=== PATIENT | female | born 1995 | race Caucasian/White ===

== ENCOUNTER 2017-05-05 02:14 | Emergency (ER) | payer SELFPAY ==
[~2017-05-05] VITALS: Ht 157.5 cm; Wt 103.2 kg
[~2017-05-05 02:14] MED LIST: ONDA8TAB12 PO; SULF1TAB23 PO
--- NOTE | 2017-05-05 02:19 | ED.ADGEN ---
Past History Past Medical History: Asthma Past Surgical History: Smoking: Non-smoker Alcohol Use: None Drug Use: None Adult General Chief Complaint Chief Complaint " I ve got lots of cavities.. but I am having a lot of pain tonight... " HPI HPI Patient is a 22 year old female who presents with above hx and complaints of dental pain. Pt. does have many cavities and findings of gingivitis. Most tender is tooth number 32 which has a open cavity. There is no pointing abscess. No trismus. Minimal adenopathy at ankle of the right mandible. Patient does smoke. Patient denies history of immunosuppression. Patient does have good bite. Patient referred to the dental school in [facility] as well as the dental surgery clinic on [facility] as sites to have repair and removal of her most severe problems if no insurance. Encourage pt to stop smoking. Review of Systems Review of Systems Constitutional: Denies fever or chills [] Eyes: Denies change in visual acuity, redness, or eye pain [] HENT: Denies nasal congestion or sore throat []Complaints of dental pain. Respiratory: Denies cough or shortness of breath [] Cardiovascular: No additional information not addressed in HPI [] GI: Denies abdominal pain, nausea, vomiting, bloody stools or diarrhea [] : Denies dysuria or hematuria [] Musculoskeletal: Denies back pain or joint pain [] Integument: Denies rash or skin lesions [] Neurologic: Denies headache, focal weakness or sensory changes [] Endocrine: Denies polyuria or polydipsia [] Family History Family History Non-contributory Current Medications Current Medications Current Medications Medications (Trade) Dose Ordered Sig/Mason Start Time Stop Time Status Last Admin Dose Admin Cephalexin HCl (Keflex) 500 mg 1X ONCE 05/05/17 02:30 05/05/17 02:31 UNV Oxycodone/ Acetaminophen (Percocet 10/325) 1 tab 1X ONCE 05/05/17 02:30 05/05/17 02:31 UNV See Nursing for home meds Allergies Allergies Allergies Coded Allergies Type Severity Reaction Last Updated Verified No Known Drug Allergies 04/21/16 No Physical Exam Physical Exam Constitutional: Well developed, well nourished, in reported acute distress, non- toxic appearance. [] HENT: Normocephalic, atraumatic, bilateral external ears normal, oropharynx moist, no oral exudates, nose normal. Many dental caries and gingivitis. Exam as per history of present illness Eyes: PERRLA, EOMI, conjunctiva normal, no discharge. [] Neck: Normal range of motion, no tenderness, supple, no stridor. [] Cardiovascular:Heart rate regular rhythm, no murmur [] Lungs & Thorax: Bilateral breath sounds equal apex with scattered wheezes auscultation [] Abdomen: Bowel sounds normal, soft, no tenderness, no masses, no pulsatile masses. Obese. Skin: Warm, dry, no erythema, no rash. [] Back: No tenderness, no CVA tenderness. [] Extremities: No tenderness, no cyanosis, no clubbing, ROM intact, no edema. [] Neurologic: Alert and oriented X 3, normal motor function, normal sensory function, no focal deficits noted. [] Psychologic: Affect normal, judgement normal, mood normal. [] Current Patient Data Vital Signs Vital Signs Date Time Temp Pulse Resp B/P (MAP) Pulse Ox O2 Delivery O2 Flow Rate FiO2 05/05/17 02:20 97.4 96 20 96 EKG EKG [] Radiology/Procedures Radiology/Procedures [] Course & Med Decision Making Course & Med Decision Making Pertinent Labs and Imaging studies reviewed. (See chart for details). Take Keflex as directed, Tylenol and ibuprofen for pain. Take [id number]. For severe pain may take Vicoprofen up to 4 times a day. Must follow-up primary care.and a dentist [] Final Impression Final Impression 1. Dental caries 2 . Gingivitis[] 3. Tobacco abuse Problems: Dragon Disclaimer Dragon Disclaimer This electronic medical record was generated, in whole or in part, using a voice recognition dictation system. ANTHONY COLEMAN MD May 05, 2017 02:19
[2017-05-05 02:20] VITALS: BP 125/76
[2017-05-05] MEDS ORDERED: CEPH-264 PO (02:28)
[2017-05-05] MEDS ORDERED: HYDR-79 PO (02:28)
[2017-05-05] MEDS ORDERED: oxyCODONE/APAP 10/325 1 TAB TABLET PO ONE (02:30)
[2017-05-05] MEDS ORDERED: CEPHALEXIN 250 MG CAPSULE PO ONE (02:30)
[2017-05-05] MEDS ORDERED: CEPHALEXIN 250 MG CAPSULE ONE (02:33)
[2017-05-05] MEDS ORDERED: oxyCODONE/APAP 10/325 1 TAB TABLET ONE (02:33)
== END 2017-05-05 02:45 | disposition home or self-care (01) ==
LOC: ER 02:14
DX: K02.9 Dental caries, unspecified (principal); K05.10 Chronic gingivitis, plaque induced; J45.909 Unspecified asthma, uncomplicated; Z72.0 Tobacco use
CPT/HCPCS: 99283

== ENCOUNTER 2017-11-02 03:35 | Emergency (ER) | payer SELFPAY ==
[~2017-11-02] VITALS: Ht 160 cm; Wt 81.6 kg
[~2017-11-02 03:35] MED LIST changes: +CEPH-264 PO; +HYDR-79 PO
--- NOTE | 2017-11-02 03:40 | ED.ADGEN ---
Past History Past Medical History: No Pertinent History Past Surgical History: Smoking: Non-smoker Alcohol Use: Occasionally Drug Use: None Adult General Chief Complaint Chief Complaint " .. I woke up with really bad abdomen pain here in Lt and lower pelvic. It started about a hour ago..." HPI HPI Patient is a 22 year old female who presents with above hx and complaints of lt and Lower pelvic pain. Pt. denies any bad food, travel, ill contacts, changes in stool or urination. Pt. denies hx of ovarian cyst. Pt. states her period is to start soon. Pt. Denies and trauma . Pt. denies vaginal discharge. Pt. has missed some of her control pills. Review of Systems Review of Systems Constitutional: Denies fever or chills [] Eyes: Denies change in visual acuity, redness, or eye pain [] HENT: Denies nasal congestion or sore throat [] Respiratory: Denies cough or shortness of breath [] Cardiovascular: No additional information not addressed in HPI [] GI: Complaints of abdominal pain, nausea. Lt flank pain. . Denies vomiting, bloody stools or diarrhea [] : Denies dysuria or hematuria [] Musculoskeletal: Denies back pain or joint pain [] Integument: Denies rash or skin lesions [] Neurologic: Denies headache, focal weakness or sensory changes [] Endocrine: Denies polyuria or polydipsia [] All other systems were reviewed and found to be within normal limits, except as documented in this note. Family History Family History Non-contributory Current Medications Current Medications Current Medications Medications (Trade) Dose Ordered Sig/Mason Start Time Stop Time Status Last Admin Dose Admin Famotidine (Pepcid Vial) 20 mg 1X ONCE 11/02/17 04:30 11/02/17 04:31 DC 11/02/17 04:48 20 MG Ketorolac Tromethamine (Toradol) 30 mg 1X ONCE 11/02/17 04:30 11/02/17 04:31 DC 11/02/17 04:48 30 MG Lactated Ringer's 1,000 ml @ 1,000 mls/hr Q1H 11/02/17 04:00 11/02/17 04:59 DC 11/02/17 04:49 1,000 MLS/HR Magnesium Hydroxide (Milk Of Magnesia) 2,400 mg 1X ONCE 11/02/17 05:30 11/02/17 05:31 DC 11/02/17 05:31 2,400 MG Ondansetron HCl (Zofran) 8 mg 1X ONCE 11/02/17 04:30 11/02/17 04:31 DC 11/02/17 04:47 8 MG Tamsulosin HCl (Flomax) 0.4 mg 1X ONCE 11/02/17 05:30 11/02/17 05:31 DC 11/02/17 05:31 0.4 MG Allergies Allergies Allergies Coded Allergies Type Severity Reaction Last Updated Verified No Known Drug Allergies 11/02/17 No Physical Exam Physical Exam Constitutional: Moderately acute distress, non-toxic appearance. [] HENT: Normocephalic, atraumatic, bilateral external ears normal, oropharynx moist, no oral exudates, nose normal. [] Eyes: PERRLA, EOMI, conjunctiva normal, no discharge. [] Neck: Normal range of motion, no tenderness, supple, no stridor. [] Cardiovascular:Heart rate regular rhythm, no murmur [] Lungs & Thorax: Bilateral breath sounds equal at apex on auscultation [] Abdomen: Bowel sounds decreased, soft, mild lower pelvic tenderness, no masses , no pulsatile masses. [] Obese. Lt flank tenderness on percussions - radiates to pelvis. Old surgery scar. Skin: Warm, dry, no erythema, no rash. [] Back: No tenderness, lt. CVA tenderness. [] Extremities: No tenderness, no cyanosis, no clubbing, ROM intact, no edema. [] No psoas. Neurologic: Alert and oriented X 3, normal motor function, normal sensory function, no focal deficits noted. [] Psychologic: Affect anxious, judgement normal, mood normal. [] Current Patient Data Vital Signs Vital Signs Date Time Temp Pulse Resp B/P (MAP) Pulse Ox O2 Delivery O2 Flow Rate FiO2 11/02/17 05:40 89 22 120/60 (80) 96 Room Air 11/02/17 03:40 98.1 Lab Results Laboratory Tests Test 11/02/17 02:57 11/02/17 03:35 11/02/17 04:03 POC Urine HCG, Qualitative hcg negative (Negative) Urine Collection Type Void Urine Color Straw Urine Clarity Clear Urine pH 6.5 Urine Specific [place] 1.010 Urine Protein Neg (NEG-TRACE) Urine Glucose (UA) Neg mg/dL (NEG) Urine Ketones (Stick) Neg mg/dL (NEG) Urine Blood Small (NEG) Urine Nitrite Neg (NEG) Urine Bilirubin Neg (NEG) Urine Urobilinogen Dipstick 0.2 mg/dL (0.2 mg/dL) Urine Leukocyte Esterase Neg (NEG) Urine RBC 1-2 /HPF (0-2) Urine WBC Occ /HPF (0-4) Urine Squamous Epithelial Cells Occ /LPF Urine Bacteria Few /HPF (0-FEW) Urine Opiates Screen Neg (NEG) Urine Methadone Screen Neg (NEG) Urine Barbiturates Neg (NEG) Urine Phencyclidine Screen Neg (NEG) Urine Amphetamine/Methamphetamine Neg (NEG) Urine Benzodiazepines Screen Neg (NEG) Urine Cocaine Screen Neg (NEG) Urine Cannabinoids Screen Neg (NEG) Urine Ethyl Alcohol Neg (NEG) White Blood Count 7.8 x10^3/uL (4.0-11.0) Red Blood Count 4.63 x10^6/uL (3.50-5.40) Hemoglobin 15.0 g/dL (12.0-15.5) Hematocrit 42.5 % (36.0-47.0) Mean Corpuscular Volume 92 fL (79-100) Mean Corpuscular Hemoglobin 32 pg (25-35) Mean Corpuscular Hemoglobin Concent 35 g/dL (31-37) Red Cell Distribution Width 12.6 % (11.5-14.5) Platelet Count 289 x10^3/uL (140-400) Neutrophils (%) (Auto) 43 % (31-73) Lymphocytes (%) (Auto) 43 % (24-48) Monocytes (%) (Auto) 10 % (0-9) H Eosinophils (%) (Auto) 2 % (0-3) Basophils (%) (Auto) 1 % (0-3) Neutrophils # (Auto) 3.4 x10^3uL (1.8-7.7) Lymphocytes # (Auto) 3.4 x10^3/uL (1.0-4.8) Monocytes # (Auto) 0.8 x10^3/uL (0.0-1.1) Eosinophils # (Auto) 0.2 x10^3/uL (0.0-0.7) Basophils # (Auto) 0.1 x10^3/uL (0.0-0.2) Prothrombin Time 10.4 SEC (9.4-11.4) Prothrombin Time INR 1.0 (0.9-1.1) PTT 21 SEC (23-33) L Maternal Serum HCG Beta Subunit < 1 mIU/mL (0-6) Sodium Level 137 mmol/L (136-145) Potassium Level 3.7 mmol/L (3.5-5.1) Chloride Level 103 mmol/L (98-107) Carbon Dioxide Level 25 mmol/L (21-32) Anion Gap 9 (6-14) Blood Urea Nitrogen 10 mg/dL (7-20) Creatinine 0.5 mg/dL (0.6-1.0) L Estimated GFR (Cockcroft-Gault) 154.3 Glucose Level 116 mg/dL (70-99) H Calcium Level 8.6 mg/dL (8.5-10.1) Total Bilirubin 0.3 mg/dL (0.2-1.0) Direct Bilirubin 0.1 mg/dL (0.0-0.2) Aspartate Amino Transferase (AST) 14 U/L (15-37) L Alanine Aminotransferase (ALT) 24 U/L (14-59) Alkaline Phosphatase 100 U/L (46-116) Total Protein 7.6 g/dL (6.4-8.2) Albumin 3.5 g/dL (3.4-5.0) Amylase Level 46 U/L (25-115) Lipase 88 U/L (73-393) EKG EKG [] Radiology/Procedures Radiology/Procedures My interpretation of abdomen film shows no acute cardiopulmonary findings. No free air in the diaphragm. Nonspecific bowel gas pattern. My interpretation CT of abdomen shows no free air, no acute surgical pathology does appear to have a small distal left ureter stone. Very mild hydronephrosis.. See formal report when available[]. Course & Med Decision Making Course & Med Decision Making Pertinent Labs and Imaging studies reviewed. (See chart for details) Push fluids. Clear fluid diet. Save renal stone if passed. Take tylenol and ibuprofen for pain. Zofran for nausea and vomiting. Vicoprofen for marked pain. Follow up with primary. Flomax daily until pain resolves or stone passed. [] Final Impression Final Impression 1. Abdomen Pain[] 2. Renal Stone 3. Hematuria Problems: Dragon Disclaimer Dragon Disclaimer This electronic medical record was generated, in whole or in part, using a voice recognition dictation system. ANTHONY COLEMAN MD Nov 02, 2017 03:40
[2017-11-02] MEDS ORDERED: [UNRECOGNIZED DRUG - OTHER] PO (03:44)
[2017-11-02] MEDS ORDERED: KETOROLAC 30 MG/ML VIAL. ONE (04:00)
[2017-11-02] MEDS ORDERED: IV RINGERS SOLUTION,LACTATED 1,000 ML IV SCH (04:00)
[2017-11-02 04:26] LABS: BARBITURATES NEG (NEG); BENZODIAZEPINES NEG (NEG); CANNABINOIDS NEG (NEG); COCAINE NEG (NEG); METHADONE NEG (NEG); OPIATES NEG (NEG); PHENCYCLIDINE NEG (NEG)
[2017-11-02 04:26] LABS: BASO # 0.1 x10^3/uL (0.0-0.2); BASO % 1 % (0-3); EOS # 0.2 x10^3/uL (0.0-0.7); EOS % 2 % (0-3); HEMATOCRIT 42.5 % (36.0-47.0); LYMPH # 3.4 x10^3/uL (1.0-4.8); LYMPH % 43 % (24-48); MEAN CORPUSCULAR HEMOGLOBIN 32 pg (25-35); MEAN CORPUSCULAR HGB CONC 35 g/dL (31-37); MEAN CORPUSCULAR VOLUME 92 fL (79-100); MONO # 0.8 x10^3/uL (0.0-1.1); MONO % 10 % (0-9); NEUT # 3.4 x10^3uL (1.8-7.7); NEUT % 43 % (31-73); PLATELET COUNT 289 x10^3/uL (140-400); RED BLOOD COUNT 4.63 x10^6/uL (3.50-5.40); RED CELL DISTRIBUTION WIDTH 12.6 % (11.5-14.5); WHITE BLOOD COUNT 7.8 x10^3/uL (4.0-11.0)
[2017-11-02 04:29] LABS: BILIRUBIN,URINE NEG (NEG); CLARITY,URINE CLEAR; COLOR,URINE STRAW; GLUCOSE,URINE NEG (NEG); NITRITE,URINE NEG (NEG); UROBILINOGEN,URINE 0.2 mg/dL (0.2 mg/dL)
[2017-11-02 04:30] LABS: BACTERIA,URINE FEW /HPF (0-FEW); SQUAMOUS EPITHELIAL CELL,UR OCC /LPF; WBC,URINE OCC /HPF (0-4)
[2017-11-02] MEDS ORDERED: ONDANSETRON PF 4 MG/2 ML VIAL. IV ONE (04:30)
[2017-11-02] MEDS ORDERED: KETOROLAC 30 MG/ML VIAL. IV ONE (04:30)
[2017-11-02] MEDS ORDERED: FAMOTIDINE 20 MG/2 ML VIAL IVP ONE (04:30)
[2017-11-02 04:33] LABS: ALBUMIN 3.5 g/dL (3.4-5.0); CALCIUM 8.6 mg/dL (8.5-10.1); CREATININE 0.5 mg/dL (0.6-1.0); DIRECT BILIRUBIN 0.1 mg/dL (0.0-0.2); GFR 154.3; POTASSIUM 3.7 mmol/L (3.5-5.1); TOTAL BILIRUBIN 0.3 mg/dL (0.2-1.0); TOTAL PROTEIN 7.6 g/dL (6.4-8.2)
[2017-11-02 04:33] LABS: AMPHETAMINE/METHAMPHETAMINE NEG (NEG)
[2017-11-02] MEDS ORDERED: TAMS0.4C97 PO (05:13)
[2017-11-02] MEDS ORDERED: HYDR-79 PO (05:13)
[2017-11-02] MEDS ORDERED: ONDA8TAB12 PO (05:13)
--- NOTE | 2017-11-02 05:27 | RAD ---
CT abdomen and pelvis without contrast: Reason for examination: Left flank pain with hematuria. Helical images were obtained through the abdomen pelvis with no intravenous or oral contrast administered. Reconstruction was performed in sagittal and coronal planes. Exposure: One or more of the following individualized dose reduction techniques were utilized for this examination: 1. Automated exposure control 2. Adjustment of the mA and/or kV according to patient size 3. Use of iterative reconstruction technique. The lung bases are clear. The heart size is normal with no pericardial effusion. No abnormality seen at the liver, gallbladder, spleen, adrenal glands or pancreas. The abdominal aorta and inferior vena cava show no abnormalities. No abnormality seen at the appendix. The intestinal tract shows no abnormally dilated loops of bowel or thickened bowel welch. There is no evidence of diverticulosis or diverticulitis. The kidneys show no renal masses or renal or ureteral calculi but there is suggestion of some mild left hydronephrosis. No abnormality seen at the bladder, uterus or ovaries. There is possibly a small amount of free fluid in pelvic cul-de-sac which could be physiologic. No acute bony abnormalities are seen. IMPRESSION: Mild hydronephrosis in the left kidney but no renal or ureteral calculi identified. Small amount of free fluid in the pelvis which could be physiologic. Electronically signed by: Allyssa Deng MD (11/02/2017 5:24 AM) [facility]
[2017-11-02] MEDS ORDERED: MAGNESIUM HYDROXIDE 2,400 MG/30 ML ORAL.SUSP. PO ONE (05:30)
[2017-11-02] MEDS ORDERED: TAMSULOSIN 0.4 MG CAP.ER.24H. PO ONE (05:30)
[2017-11-02 05:40] VITALS: BP 120/60
--- NOTE | 2017-11-02 08:25 | RAD ---
PA chest and AP upright supine abdomen x-ray History: Left flank pain and hematuria. Findings: Heart and mediastinum are unremarkable. No pulmonary opacities or pleural effusions. No pneumoperitoneum. Mild volume of stool within the right-sided colon. No dilated bowel loops or abnormal air-fluid levels. The bones are unremarkable. At the left pelvis there is a 3 mm low-density calcification, a distal ureteral calculus is a possibility. Secondarily this could be a phlebolith. Bones are unremarkable. Impression: No acute process in the chest. No evidence of bowel obstruction. 3 mm calcification within the pelvis as described above.
== END 2017-11-02 05:38 | disposition home or self-care (01) ==
LOC: ER 03:35
DX: N20.0 Calculus of kidney (principal); R31.9 Hematuria, unspecified
CPT/HCPCS: 36415; 74022; 74176; 80048; 80076; 80307; 81001; 81025; 82150; 83690; 84702; 85025; 85610; 85730; 96374; 96375; 99285; J1885; J2405; J7120; S0028; 96361; G0479

== ENCOUNTER 2018-09-21 22:14 | Emergency (ER) | payer SELFPAY ==
[~2018-09-21] VITALS: Ht 160 cm; Wt 103.2 kg
[~2018-09-21 22:14] MED LIST changes: +HYDR-1179 PO; -HYDR-79 PO; +TAMS0.4C97 PO; +[UNRECOGNIZED DRUG - OTHER] PO
--- NOTE | 2018-09-21 22:43 | ED.ADGEN ---
Past History Past Medical History: No Pertinent History Past Surgical History: Smoking: Non-smoker Alcohol Use: Occasionally Drug Use: None Adult General Chief Complaint Chief Complaint ".. I am still having abd. pain.. I was at [facility] the other day.... 2 weeks ago. .and they did not do any except look for a STD.. then told me to follow up with my doctor and hemmer automatic...." [facility] HPI Patient is a 23 year old female who presents with above history and complaints of severe abdomen pain. Patient complains of generalized abdomen pain. There is some localization of pain to right lower quadrant. Patient has been eating. Patient did eat tonight. Patient states no one else became ill eating the same food. Patient states she's been having normal stools. Patient denies any vaginal discharge. Patient denies any trauma. Patient denies any specific ill contacts. Patient denies any history of immunosuppression. Denies any history of STDs. Patient did undergo a with last delivery. And was evaluated for adhesions to her surgery site which was felt to be not a problem. Patient last ate approximately 1930 hrs. Patient is concerned she may not be again. Patient has been having somewhat irregular periods and increased cramping with periods. Patient denies history kidney stones in her or family members. Patient denies history of colitis in her or family members. Patient denies history of ovarian cysts with her or family members. Review of Systems Review of Systems Constitutional: Denies fever or chills [] Eyes: Denies change in visual acuity, redness, or eye pain [] HENT: Denies nasal congestion or sore throat [] Respiratory: Denies cough or shortness of breath [] Cardiovascular: No additional information not addressed in HPI [] GI: Complaints of abdominal pain, nausea,. Denies vomiting, bloody stools or diarrhea [] : Denies dysuria or hematuria []does have history of some irregular and painful periods. Musculoskeletal: Denies back pain or joint pain [] Integument: Denies rash or skin lesions [] Neurologic: Denies headache, focal weakness or sensory changes [] Endocrine: Denies polyuria or polydipsia [] All other systems were reviewed and found to be within normal limits, except as documented in this note. Family History Family History Noncontributory Current Medications Current Medications Current Medications Medications (Trade) Dose Ordered Sig/Mason Start Time Stop Time Status Last Admin Dose Admin Famotidine (Pepcid Vial) 20 mg 1X ONCE 09/21/18 23:45 09/21/18 23:46 DC 09/22/18 01:32 20 MG Info (Do NOT chart on this entry -- for MONITORING) 1 each PRN DAILY PRN 09/22/18 00:15 09/22/18 03:07 DC Iohexol (Omnipaque 240 Mg/ml) 30 ml 1X ONCE 09/22/18 00:15 09/22/18 00:16 DC 09/22/18 01:57 30 ML Iohexol (Omnipaque 300 Mg/ml) 75 ml 1X ONCE 09/22/18 00:15 09/22/18 00:16 DC 09/22/18 01:57 75 ML Lactated Ringer's 1,000 ml @ 1,000 mls/hr Q1H 09/21/18 23:45 09/22/18 00:44 DC 09/22/18 01:32 1,000 MLS/HR Magnesium Hydroxide (Milk Of Magnesia) 2,400 mg 1X ONCE 09/21/18 23:45 09/21/18 23:46 DC 09/22/18 02:05 2,400 MG Morphine Sulfate (Morphine 10mg Syringe) 10 mg 1X ONCE 09/21/18 23:45 09/21/18 23:46 DC 09/22/18 01:33 10 MG Ondansetron HCl (Zofran) 8 mg 1X ONCE 09/21/18 23:45 09/21/18 23:46 DC 09/22/18 01:32 8 MG Allergies Allergies Allergies Coded Allergies Type Severity Reaction Last Updated Verified No Known Drug Allergies 11/02/17 No Physical Exam Physical Exam Constitutional: Well developed, well nourished, reports acute distress, non- toxic appearance. [] HENT: Normocephalic, atraumatic, bilateral external ears normal, oropharynx moist, no oral exudates, nose normal. [] Eyes: PERRLA, EOMI, conjunctiva normal, no discharge. [] Neck: Normal range of motion, no tenderness, supple, no stridor. [] Cardiovascular:Heart rate regular rhythm, no murmur [] Lungs & Thorax: Bilateral breath sounds clear to auscultation [] Abdomen: Bowel sounds decreased, distended,, soft, generalized tenderness, some rebound to right lower quadrant, no masses, no pulsatile masses. []The C section surgery scar. Declines pelvic or rectal exam at this time. Skin: Warm, dry, no erythema, no rash. [] Back: No tenderness, no CVA tenderness. [] Extremities: No tenderness, no cyanosis, no clubbing, ROM intact, no edema. [] No true psoas sign Neurologic: Alert and oriented X 3, normal motor function, normal sensory function, no focal deficits noted. [] Psychologic: Affect very anxious,, judgement normal, mood normal. [] Current Patient Data Vital Signs Vital Signs Date Time Temp Pulse Resp B/P (MAP) Pulse Ox O2 Delivery O2 Flow Rate FiO2 09/22/18 03:05 76 16 104/67 (79) 99 Room Air 09/21/18 22:14 98.5 Lab Results Laboratory Tests Test 09/21/18 22:36 09/21/18 22:43 09/22/18 01:10 Urine Collection Type Unknown Urine Color Yellow Urine Clarity Clear Urine pH 6.5 Urine Specific [place] 1.010 Urine Protein Neg (NEG-TRACE) Urine Glucose (UA) Neg mg/dL (NEG) Urine Ketones (Stick) Neg mg/dL (NEG) Urine Blood Trace (NEG) Urine Nitrite Neg (NEG) Urine Bilirubin Neg (NEG) Urine Urobilinogen Dipstick 0.2 mg/dL (0.2 mg/dL) Urine Leukocyte Esterase Neg (NEG) Urine RBC 0 /HPF (0-2) Urine WBC 0 /HPF (0-4) Urine Squamous Epithelial Cells Few /LPF Urine Bacteria 0 /HPF (0-FEW) Urine Opiates Screen Neg (NEG) Urine Methadone Screen Neg (NEG) Urine Barbiturates Neg (NEG) Urine Phencyclidine Screen Neg (NEG) Urine Amphetamine/Methamphetamine Neg (NEG) Urine Benzodiazepines Screen Neg (NEG) Urine Cocaine Screen Neg (NEG) Urine Cannabinoids Screen Neg (NEG) Urine Ethyl Alcohol Neg (NEG) POC Urine HCG, Qualitative hcg negative (Negative) White Blood Count 6.7 x10^3/uL (4.0-11.0) Red Blood Count 4.49 x10^6/uL (3.50-5.40) Hemoglobin 14.5 g/dL (12.0-15.5) Hematocrit 41.9 % (36.0-47.0) Mean Corpuscular Volume 93 fL (79-100) Mean Corpuscular Hemoglobin 32 pg (25-35) Mean Corpuscular Hemoglobin Concent 35 g/dL (31-37) Red Cell Distribution Width 12.5 % (11.5-14.5) Platelet Count 349 x10^3/uL (140-400) Neutrophils (%) (Auto) 48 % (31-73) Lymphocytes (%) (Auto) 42 % (24-48) Monocytes (%) (Auto) 7 % (0-9) Eosinophils (%) (Auto) 2 % (0-3) Basophils (%) (Auto) 1 % (0-3) Neutrophils # (Auto) 3.2 x10^3uL (1.8-7.7) Lymphocytes # (Auto) 2.8 x10^3/uL (1.0-4.8) Monocytes # (Auto) 0.5 x10^3/uL (0.0-1.1) Eosinophils # (Auto) 0.2 x10^3/uL (0.0-0.7) Basophils # (Auto) 0.0 x10^3/uL (0.0-0.2) Sodium Level 139 mmol/L (136-145) Potassium Level 3.5 mmol/L (3.5-5.1) Chloride Level 102 mmol/L (98-107) Carbon Dioxide Level 29 mmol/L (21-32) Anion Gap 8 (6-14) Blood Urea Nitrogen 9 mg/dL (7-20) Creatinine 0.6 mg/dL (0.6-1.0) Estimated GFR (Cockcroft-Gault) 123.9 Glucose Level 86 mg/dL (70-99) Calcium Level 9.3 mg/dL (8.5-10.1) Total Bilirubin 0.7 mg/dL (0.2-1.0) Direct Bilirubin 0.1 mg/dL (0.0-0.2) Aspartate Amino Transferase (AST) 15 U/L (15-37) Alanine Aminotransferase (ALT) 29 U/L (14-59) Alkaline Phosphatase 93 U/L (46-116) Total Protein 8.5 g/dL (6.4-8.2) H Albumin 4.0 g/dL (3.4-5.0) Amylase Level 51 U/L (25-115) Lipase 88 U/L (73-393) EKG EKG [] Radiology/Procedures Radiology/Procedures My interpretation of acute abdomen film shows no acute cardiopulmonary findings. No free air in the diaphragm. Nonspecific bowel gas pattern. Does have stool in colon. CT of abdomen shows no acute surgical processes. No hydronephrosis. No findings of significant free fluid or inflammation. Appendix appeared to be normal. See formal report when available[] Course & Med Decision Making Course & Med Decision Making Pertinent Labs and Imaging studies reviewed. (See chart for details) Patient to remain on a clear fluid diet only for the next 2 days. No solids no milk products must allow bowel rest. Must keep follow-up primary care. Must follow-up pending labs and cultures. Reviewed labs and x-rays with her primary care. Return if any concerns. May take Tylenol and ibuprofen for pain. May need additional GI evaluation such as colonoscopy or GI consult. But would complete workup with [facility] as previously instructed because of history of dysmenorrhea. [] Final Impression Final Impression 1. Abdomen pain 2. History of dysmenorrhea 3. Some findings consistent with constipation and gas[] 4. History of Dragon Disclaimer Dragon Disclaimer This electronic medical record was generated, in whole or in part, using a voice recognition dictation system. Discharge Summary Visit Information Final Diagnosis Problems Medical Problems: (1) Pain in the abdomen Status: Acute Brief Hospital Course Allergies Allergies Coded Allergies Type Severity Reaction Last Updated Verified No Known Drug Allergies 11/02/17 No Vital Signs Vital Signs Date Time Temp Pulse Resp B/P (MAP) Pulse Ox O2 Delivery O2 Flow Rate FiO2 09/22/18 03:05 76 16 104/67 (79) 99 Room Air 09/21/18 22:14 98.5 Lab Results Laboratory Tests Test 09/21/18 22:36 09/21/18 22:43 09/22/18 01:10 Urine Collection Type Unknown Urine Color Yellow Urine Clarity Clear Urine pH 6.5 Urine Specific [place] 1.010 Urine Protein Neg (NEG-TRACE) Urine Glucose (UA) Neg mg/dL (NEG) Urine Ketones (Stick) Neg mg/dL (NEG) Urine Blood Trace (NEG) Urine Nitrite Neg (NEG) Urine Bilirubin Neg (NEG) Urine Urobilinogen Dipstick 0.2 mg/dL (0.2 mg/dL) Urine Leukocyte Esterase Neg (NEG) Urine RBC 0 /HPF (0-2) Urine WBC 0 /HPF (0-4) Urine Squamous Epithelial Cells Few /LPF Urine Bacteria 0 /HPF (0-FEW) Urine Opiates Screen Neg (NEG) Urine Methadone Screen Neg (NEG) Urine Barbiturates Neg (NEG) Urine Phencyclidine Screen Neg (NEG) Urine Amphetamine/Methamphetamine Neg (NEG) Urine Benzodiazepines Screen Neg (NEG) Urine Cocaine Screen Neg (NEG) Urine Cannabinoids Screen Neg (NEG) Urine Ethyl Alcohol Neg (NEG) Bedside Urine HCG, Qualitative hcg negative (Negative) White Blood Count 6.7 x10^3/uL (4.0-11.0) Red Blood Count 4.49 x10^6/uL (3.50-5.40) Hemoglobin 14.5 g/dL (12.0-15.5) Hematocrit 41.9 % (36.0-47.0) Mean Corpuscular Volume 93 fL (79-100) Mean Corpuscular Hemoglobin 32 pg (25-35) Mean Corpuscular Hemoglobin Concent 35 g/dL (31-37) Red Cell Distribution Width 12.5 % (11.5-14.5) Platelet Count 349 x10^3/uL (140-400) Neutrophils (%) (Auto) 48 % (31-73) Lymphocytes (%) (Auto) 42 % (24-48) Monocytes (%) (Auto) 7 % (0-9) Eosinophils (%) (Auto) 2 % (0-3) Basophils (%) (Auto) 1 % (0-3) Neutrophils # (Auto) 3.2 x10^3uL (1.8-7.7) Lymphocytes # (Auto) 2.8 x10^3/uL (1.0-4.8) Monocytes # (Auto) 0.5 x10^3/uL (0.0-1.1) Eosinophils # (Auto) 0.2 x10^3/uL (0.0-0.7) Basophils # (Auto) 0.0 x10^3/uL (0.0-0.2) Sodium Level 139 mmol/L (136-145) Potassium Level 3.5 mmol/L (3.5-5.1) Chloride Level 102 mmol/L (98-107) Carbon Dioxide Level 29 mmol/L (21-32) Anion Gap 8 (6-14) Blood Urea Nitrogen 9 mg/dL (7-20) Creatinine 0.6 mg/dL (0.6-1.0) Estimated GFR (Cockcroft-Gault) 123.9 Glucose Level 86 mg/dL (70-99) Calcium Level 9.3 mg/dL (8.5-10.1) Total Bilirubin 0.7 mg/dL (0.2-1.0) Direct Bilirubin 0.1 mg/dL (0.0-0.2) Aspartate Amino Transf (AST/SGOT) 15 U/L (15-37) Alanine Aminotransferase (ALT/SGPT) 29 U/L (14-59) Alkaline Phosphatase 93 U/L (46-116) Total Protein 8.5 g/dL (6.4-8.2) Albumin 4.0 g/dL (3.4-5.0) Amylase Level 51 U/L (25-115) Lipase 88 U/L (73-393) Brief Hospital Course Ms. Mathews is a 23 old female who presented with abdomen pain. No acute surgical processes found tonight. Patient to keep follow-up and stay on a clear fluid diet. Discharge Information Condition at Discharge: Improved, Stable Disposition/Orders: D/C to Home Dischare Medications Current Medications Lactated Ringer's 1,000 ml @ 1,000 mls/hr Q1H IV Last administered on 01:32; Admin Dose 1,000 MLS/HR; Start 09/21/18 at 23:45; Stop 09/22/18 at 00:44; Status DC Ondansetron HCl (Zofran) 8 mg 1X ONCE IV Last administered on 09/22/18 01:32 ; Admin Dose 8 MG; Start 09/21/18 at 23:45; Stop 09/21/18 at 23:46; Status DC Famotidine (Pepcid Vial) 20 mg 1X ONCE IVP Last administered on 09/22/18 01: 32; Admin Dose 20 MG; Start 09/21/18 at 23:45; Stop 09/21/18 at 23:46; Status DC Morphine Sulfate (Morphine 10mg Syringe) 10 mg 1X ONCE SQ Last administered on 09/22/18at 01:33; Admin Dose 10 MG; Start 09/21/18 at 23:45; Stop 09/21/18 at 23:46; Status DC Magnesium Hydroxide (Milk Of Magnesia) 2,400 mg 1X ONCE PO Last administered on 09/22/18at 02:05; Admin Dose 2,400 MG; Start 09/21/18 at 23:45; Stop 09/21/18 at 23:46; Status DC Iohexol (Omnipaque 240 Mg/ml) 30 ml 1X ONCE PO Last administered on 09/22/18at 01:57; Admin Dose 30 ML; Start 09/22/18 at 00:15; Stop 09/22/18 at 00:16; Status DC Iohexol (Omnipaque 300 Mg/ml) 75 ml 1X ONCE IV Last administered on 09/22/18at 01:57; Admin Dose 75 ML; Start 09/22/18 at 00:15; Stop 09/22/18 at 00:16; Status DC Info (Do NOT chart on this entry -- for MONITORING) 1 each PRN DAILY PRN MC SEE COMMENTS; Start 09/22/18 at 00:15; Stop 09/22/18 at 03:07; Status DC Active Scripts Active Flomax (Tamsulosin Hcl) 0.4 Mg Cap.er.24h 1 Cap PO DAILY Zofran Odt (Ondansetron) 8 Mg Tab.rapdis 8 Mg PO QIDPRN PRN Hydrocodone-Ibuprofen 7.5-200 (Hydrocodone/Ibuprofen) 1 Each Tablet 1 Tab PO PRN Q6HRS PRN Reported [orthomicronor] 1 Tab PO DAILY Dragon Disclaimer This chart was dictated in whole or in part using Voice Recognition software in a busy, high-work load, and often noisy Emergency Department environment. It may contain unintended and wholly unrecognized errors or omissions. ANTHONY COLEMAN MD Sep 21, 2018 22:43
[2018-09-21 23:11] LABS: BARBITURATES NEG (NEG); BENZODIAZEPINES NEG (NEG); CANNABINOIDS NEG (NEG); COCAINE NEG (NEG); METHADONE NEG (NEG); OPIATES NEG (NEG); PHENCYCLIDINE NEG (NEG)
[2018-09-21 23:14] LABS: BACTERIA,URINE 0 /HPF (0-FEW); BILIRUBIN,URINE NEG (NEG); CLARITY,URINE CLEAR; COLOR,URINE YELLOW; GLUCOSE,URINE NEG (NEG); NITRITE,URINE NEG (NEG); RBC,URINE 0 /HPF (0-2); SQUAMOUS EPITHELIAL CELL,UR FEW /LPF; UROBILINOGEN,URINE 0.2 mg/dL (0.2 mg/dL); WBC,URINE 0 /HPF (0-4)
[2018-09-21 23:15] LABS: AMPHETAMINE/METHAMPHETAMINE NEG (NEG)
[2018-09-22] MEDS ORDERED: CONTRAST GIVEN MC PRN (00:15)
[2018-09-22 01:26] LABS: BASO % 1 % (0-3); EOS # 0.2 x10^3/uL (0.0-0.7); EOS % 2 % (0-3); HEMATOCRIT 41.9 % (36.0-47.0); HEMOGLOBIN 14.5 g/dL (12.0-15.5); LYMPH # 2.8 x10^3/uL (1.0-4.8); LYMPH % 42 % (24-48); MEAN CORPUSCULAR HEMOGLOBIN 32 pg (25-35); MEAN CORPUSCULAR HGB CONC 35 g/dL (31-37); MEAN CORPUSCULAR VOLUME 93 fL (79-100); MONO # 0.5 x10^3/uL (0.0-1.1); MONO % 7 % (0-9); NEUT # 3.2 x10^3uL (1.8-7.7); NEUT % 48 % (31-73); PLATELET COUNT 349 x10^3/uL (140-400); RED BLOOD COUNT 4.49 x10^6/uL (3.50-5.40); RED CELL DISTRIBUTION WIDTH 12.5 % (11.5-14.5); WHITE BLOOD COUNT 6.7 x10^3/uL (4.0-11.0)
[2018-09-22] MEDS: FAMOTIDINE 20 MG/2 ML VIAL IVP ONE (01:32)
[2018-09-22] MEDS: IV RINGERS SOLUTION,LACTATED 1,000 ML IV SCH (01:32)
[2018-09-22] MEDS: ONDANSETRON PF 4 MG/2 ML VIAL. IV ONE (01:32)
[2018-09-22] MEDS: MORPHINE SULFATE 10 MG/ML SYRINGE. SQ ONE (01:33)
[2018-09-22 01:37] LABS: CALCIUM 9.3 mg/dL (8.5-10.1); CREATININE 0.6 mg/dL (0.6-1.0); DIRECT BILIRUBIN 0.1 mg/dL (0.0-0.2); GFR 123.9; POTASSIUM 3.5 mmol/L (3.5-5.1); TOTAL BILIRUBIN 0.7 mg/dL (0.2-1.0); TOTAL PROTEIN 8.5 g/dL (6.4-8.2)
[2018-09-22] MEDS: IOHEXOL 300 MG/ML 75 ML VIAL. IV ONE (01:57)
[2018-09-22] MEDS: IOHEXOL 240 MG/ML 50ML VIAL. PO ONE (01:57)
[2018-09-22] MEDS: MAGNESIUM HYDROXIDE 2,400 MG/30 ML ORAL.SUSP. PO ONE (02:05)
--- NOTE | 2018-09-22 02:10 | RAD ---
PQRS Compliance statement: One or more of the following individualized dose reduction techniques were utilized for this examination: 1. Automated exposure control. 2. Adjustment of the mA and/or kV according to patient size. 3. Use of iterative reconstruction technique. Indication:Omni 300, 75ml IV. Omni 240, 30ml PO. Abdominal pain and cramping. Neg hcg today TECHNIQUE: CT abdomen and pelvis with IV contrast with multiplanar reformats. COMPARISON: 11/02/2017 FINDINGS: Heart is normal in size. No pericardial or pleural effusion. Clear lung bases. Liver, spleen, gallbladder, pancreas, adrenals and kidneys are within normal limits. No free pelvic fluid or ascites. No enlarged retroperitoneal or pelvic adenopathy. No bowel obstruction. Normal appendix. Anteverted uterus. Urinary bladder is within normal limits. No pneumoperitoneum. No suspicious bony lesion. IMPRESSION: No acute findings. Electronically signed by: Jackson Haro DO (09/22/2018 2:07 AM) [id number]
[2018-09-22 03:05] VITALS: BP 104/67
--- NOTE | 2018-09-22 03:44 | RAD ---
Indication:Lower abdominal pain and cramping. Neg HCG today TECHNIQUE:Acute abdominal series COMPARISON: None FINDINGS: Heart is normal in size. Lungs are clear. No pneumothorax or pleural effusion. No pneumoperitoneum. No abnormally dilated bowel loops or air-fluid levels. No abnormal calcific densities projecting over the kidneys to suggest apparent renal stones. Moderate proximal colonic stool burden. Visualized bones are within normal limits. IMPRESSION: No acute radiographic findings. Electronically signed by: Jackson Haro DO (09/22/2018 3:41 AM) [id number]
== END 2018-09-22 03:05 | disposition home or self-care (01) ==
LOC: ER 22:14
DX: R10.84 Generalized abdominal pain (principal); R11.0 Nausea; Z98.890 Other specified postprocedural states
CPT/HCPCS: 36415; 74022; 74177; 80048; 80076; 80307; 81001; 81025; 82150; 83690; 85025; 96372; 96374; 96375; 99284; J2270; J2405; J3490; J7120; Q9966; Q9967